=== PATIENT | male | born 1940 | race Asian ===

== ENCOUNTER 2019-04-05 20:51 | Emergency (ER) | payer MEDICAID, MEDICARE ==
[~2019-04-05] VITALS: Ht 167.6 cm; Wt 72.6 kg
--- NOTE | 2019-04-05 20:59 | Emergency Room Report ---
History of Present Illness General Source: Patient, EMS Present Illness HPI This is a 78-year-old male who history of hypertension but not on medication. He presents with complaint abdominal pain. Pain been ongoing for over a week. Pain is epigastric in area. No vomiting. Has diarrhea. Pain is sharp and crampy. No fever chills. No dysuria frequency. No hematuria. Nothing made it better. Palpation made it worse. Pain is 8 out of 10. Allergies: Coded Allergies: No Known Allergies (Unverified , 04/05/19) Patient History Past Medical History: see triage record, old chart reviewed, HTN Past Surgical History: other Pertinent Family History: none Social History: Denies: smoking Immunizations: other Reviewed Nursing Documentation: PMH: Agreed; PSxH: Agreed Review of Systems Eye: Denies: eye pain, blurred vision ENT: Denies: ear pain, nose congestion, throat swelling Respiratory: Denies: cough, shortness of breath Cardiovascular: Denies: chest pain, palpitations Gastrointestinal: Reports: abdominal pain, diarrhea; Denies: nausea, vomiting Musculoskeletal: Denies: back pain, joint pain Skin: Denies: rash Neurological: Denies: headache, numbness Endocrine: Denies: increased thirst, increased urine Hematologic/Lymphatic: Denies: easy bruising All Other Systems: negative except mentioned in HPI Physical Exam Vitals unremarkable Sp02 EP Interpretation: reviewed, normal General Appearance: well appearing, no apparent distress, alert Head: normocephalic, atraumatic Eyes: bilateral eye PERRL, bilateral eye EOMI ENT: hearing grossly normal, normal pharynx Neck: full range of motion, supple, no meningismus Respiratory: chest non-tender, lungs clear, normal breath sounds Cardiovascular #1: regular rate, rhythm, no murmur Gastrointestinal: no mass, no organomegaly, no bruit, non-distended, abnormal bowel sounds - Increased bowel sounds, tenderness - Gastric and supraumbilical Musculoskeletal: back normal, normal range of motion, gait/station normal Psychiatric: mood/affect normal Medical Decision Making Diagnostic Impression: Primary Impression: Abdominal pain Qualified Codes: R10.13 - Epigastric pain Additional Impressions: UTI (urinary tract infection) Qualified Codes: N30.00 - Acute cystitis without hematuria IZABELLA (acute kidney injury) ER Course Patient with abdominal pain. No evidence of an acute abdomen or obstruction. This may be gastritis or peptic ulcer disease. He does have a mild urinary tract infection. Antibiotics given here. Pain is better controlled. Will discharge home. CT/MRI/US Diagnostic Results CT/MRI/US Diagnostic Results : Imaging Test Ordered: CT abdomen and pelvis Impression No acute process per radiologist Status: improved Disposition: HOME, SELF-CARE Condition: Stable Scripts Pantoprazole* (PROTONIX*) 40 Mg Tablet.dr 40 MG ORAL DAILY, #30 TAB Prov: Matt Montalvo MD 04/05/19 Nitrofurantoin Monohyd/M-Cryst (Nitrofurantoin Burnet-Mcr 100 mg) 100 Mg Capsule 100 MG ORAL Q12H, #14 CAP Prov: Matt Montalvo MD 04/05/19 Patient Instructions: Abdominal Pain, Adult Additional Instructions: Follow up with your doctor in 2 to 3 days if not better. Return if worse. Matt Montalvo MD Apr 05, 2019 20:59
[2019-04-05 21:00] VITALS: BP 142/77
[2019-04-05] MEDS ORDERED: Morphine Sulfate 4mg/ml Inj (IV USE ONLY) IVP ONE ×2 (21:00→23:15)
--- NOTE | 2019-04-05 21:00 | NUR ---
ED Nurse Note: Pt brought in by LUIS E MITCHELL 81[facility] from [facility] for c/o abdominal pain onset one week ago, worse today. Pt denies n/v, but does report diarrhea. Pt also states decreased oral intake due to pain. Pt states abdominal pain is 10/10, aching in nature. Pt is aaox4, breathing is normal, no cardiac distress noted. Pt placed on hotel maid. Pt states hx of HTN, but does not take medication.
--- NOTE | 2019-04-05 21:25 | NUR ---
ED Nurse Note: Pt taken to CT via paige at this time.
[2019-04-05 21:39] LABS: BASOPHILS % (AUTO) 1.4 % (0.0-2.0); EOSINOPHILS % (AUTO) 0.8 % (0.0-3.0); HEMATOCRIT 46.5 % (42.0-52.0); HEMOGLOBIN 16.6 G/DL (14.2-18.0); LYMPHOCYTES % (AUTO) 33.8 % (20.0-45.0); MEAN CORPUSCULAR VOLUME 89 FL (80-99); NEUTROPHILS % (AUTO) 56.1 % (45.0-75.0); PLATELET COUNT 206 K/UL (150-450); RED BLOOD COUNT 5.21 M/UL (4.70-6.10); RED CELL DISTRIBUTION WIDTH 12.3 % (11.6-14.8); WHITE BLOOD COUNT 8.2 K/UL (4.8-10.8)
[2019-04-05 21:51] LABS: ANION GAP 16 mmol/L (5-15); BLOOD UREA NITROGEN 35 mg/dL (7-18); CALCIUM 9.2 MG/DL (8.5-10.1); CARBON DIOXIDE 20 MMOL/L (21-32); CHLORIDE 100 MMOL/L (98-107); CREATININE 1.6 MG/DL (0.55-1.30); POTASSIUM 3.9 MMOL/L (3.5-5.1); SODIUM 136 MMOL/L (136-145)
[2019-04-05 22:03] LABS: ALANINE AMINOTRANSFERASE 39 U/L (12-78); ALBUMIN 3.7 G/DL (3.4-5.0); ALBUMIN/GLOBULIN RATIO 0.8 (1.0-2.7); ALKALINE PHOSPHATASE 74 U/L (46-116); ASPARTATE AMINO TRANSFERASE 28 U/L (15-37); BILIRUBIN,TOTAL 1.3 MG/DL (0.2-1.0)
[2019-04-05 22:05] LABS: BILIRUBIN,DIRECT 0.2 MG/DL (0.0-0.3)
--- NOTE | 2019-04-05 22:14 | Diagnostic Imaging Report ---
INDICATION: Abdominal pain TECHNIQUE: Continuous helical transaxial imaging of the abdomen and pelvis was obtained from the lung bases to the pubic symphysis. No intravenous contrast was administered. Coronal 2-D reformats were also obtained. Automatic Exposure Control was utilized. Total Dose length Product (DLP): 1222.[address] Dose Index Volume (CTDIvol): 28 mGy Comparison: none FINDINGS: Lungs: Heterogeneous focus of ovoid calcification noted in the left infrahilar region associated with some reticular densities and likely associate sales representative of scarring.. Liver: Unremarkable Gallbladder/biliary system: Cholecystectomy clips noted. Gallbladder is absent. No biliary ductal dilatation identified on this study.. Spleen: Unremarkable Pancreas: Unremarkable Kidneys: Unremarkable. Adrenal glands: Unremarkable Bowel: Few diverticula noted within the colon. No evidence of acute diverticulitis. Bladder: Normal Aorta/IVC: Moderate calcification of the aorta and iliac arteries demonstrated. Peritoneum: There is no free fluid. Appendix: Normal Bones: There is generalized osteopenia present. Vertebral endplate osteophytes demonstrated at multiple levels. Hypertrophied facets noted multiple levels. IMPRESSION: No acute findings. Incidental findings as above. [facility] has communicated the preliminary results to the Emergency Department. Their findings are largely concordant with this report. Note: Evaluation of solid organs is limited on non contrast imaging. The CT scanner at [facility] is accredited by the [employer] and the scans are performed using dose optimization techniques as appropriate to a performed exam including Automatic Exposure control.
--- NOTE | 2019-04-05 22:15 | NUR ---
ED Nurse Note: Pt states he is feeling better and pain has gone down to a 3/10. Pt is resting comfortably in bed. Blankets provided for comfort. Will continue to monitor.
[2019-04-05 22:18] LABS: APPEARANCE,URINE CLEAR; BILIRUBIN, URINE NEGATIVE (NEGATIVE); GLUCOSE, URINE (UA) NEGATIVE (NEGATIVE); KETONES,URINE 2+ (NEGATIVE); LEUKOCYTE ESTERASE ,URINE 3+ (NEGATIVE); NITRITE,URINE NEGATIVE (NEGATIVE); PH,URINE 5 (4.5-8.0); PROTEIN,URINE 2+ (NEGATIVE); UROBILINOGEN,URINE 1 MG/DL (0.0-1.0)
[2019-04-05 22:20] LABS: COLOR,URINE YELLOW
[2019-04-05] MEDS ORDERED: cefTRIAXone 1 GM in NS 55 ML IVPB ONE (22:45)
[2019-04-05] MEDS ORDERED: MACROBID100 MG ORAL (22:57)
[2019-04-05] MEDS ORDERED: PROTONIX40 MG ORAL (22:57)
[2019-04-05 23:00] VITALS: BP 137/79
[2019-04-06 00:30] VITALS: BP 121/87
--- NOTE | 2019-04-06 00:30 | NUR ---
ER DISCHARGE NOTE: Patient is cleared to be discharged per ERMD, pt is aox4, on room air, with stable vital signs. pt was given dc and prescription instructions, pt was able to verbalize understanding, pt id band and iv site removed without complications. pt took all belongings. pt being transported home by [id number], report given to s crew.
== END 2019-04-06 00:30 | disposition home or self-care (01) ==
LOC: EDBD 20:51 → EMR 21:10
DX: R10.13 Epigastric pain (principal); N30.00 Acute cystitis without hematuria; N17.9 Acute kidney failure, unspecified; I10 Essential (primary) hypertension
CPT/HCPCS: 36415; 74176; 80053; 81003; 82248; 83690; 85025; 96361; 96365; 96375; 96376; 99284; J0696; J2270; J2405; J7030; S0028